=== PATIENT | male | born 1965 | race Caucasian/White ===

== ENCOUNTER 2017-01-04 16:47 | Emergency (ER) | payer SELFPAY ==
--- NOTE | 2017-01-04 17:26 | ED.PDOC ---
History of Present Illness - General Chief Complaint: General Stated Complaint: thumb/hand swelling/redness/pain Time Seen by Provider: 01/04/17 17:17 Source: patient, RN notes reviewed, Vital Signs reviewed Exam Limitations: no limitations - History of Present Illness Initial Comments: Patient is a 51 y/o male who was doing yard work 3 days ago when his thumb started hurting. The pain has increased over the past three days. When he woke up this morning, his entire right hand was swollen with pain going up his arm. The thumb is very swollen and painful. Timing/Duration: getting worse, other - 3 days Severity: moderate, severe Improving Factors: nothing Worsening Factors: movement Associated Symptoms: denies symptoms Allergies/Adverse Reactions: Allergies NO KNOWN ALLERGY Allergy (Unverified 05/08/13 02:10) Home Medications: Ambulatory Orders Sulfa/Trimeth 800/160 (Ds) Tab [Bactrim DS Tab] 1 ea PO BID #14 tab 08/30/14 Clindamycin HCl 300 mg PO TID #21 cap 01/04/17 Review of Systems - Review of Systems Constitutional: States: no symptoms reported EENTM: States: no symptoms reported Respiratory: States: no symptoms reported Cardiology: States: no symptoms reported Gastrointestinal/Abdominal: States: no symptoms reported Genitourinary: States: no symptoms reported Musculoskeletal: States: joint pain, muscle pain, muscle stiffness Skin: States: other - redness, swelling, pustules Neurological: States: no symptoms reported Endocrine: States: no symptoms reported Hematologic/Lymphatic: States: no symptoms reported Past Medical History (General) - Patient Medical History Hx Seizures: No Hx Stroke: No Hx Dementia: No Hx Asthma: No Hx of COPD: No Hx Cardiac Disorders: No Hx Congestive Heart Failure: No Hx Pacemaker: No Hx Hypertension: No Hx Thyroid Disease: No Hx Diabetes: No Hx Gastroesophageal Reflux: No Hx Renal Disease: No Hx Cancer: No Hx of HIV: No Hx Hepatitis C: No Hx MRSA: No MRSA Source:: Wound Surgical History: no surgical history - Vaccination History Hx Tetanus, Diphtheria Vaccination: No Hx Influenza Vaccination: No Hx Pneumococcal Vaccination: No - Social History Hx Tobacco Use: Yes Hx Chewing Tobacco Use: No Hx Alcohol Use: Yes - occasinnally Hx Substance Use: Yes Hx Depression: No Hx Physical Abuse: No Hx Emotional Abuse: No Hx Suspected Abuse: No - Female History Patient : No Family Medical History - Family History Mother Family History: No Known Living Status: Physical Exam - Physical Exam General Appearance: Alert, Obvious distress - Moderate Ears, Nose, Throat: hearing grossly normal, normal ENT inspection Neck: non-tender, supple Respiratory: no respiratory distress Extremity: swelling, other - Right hand: Thumb with obvious abscess 3.4 x 2.8 cm with two pustules atop. Entire right hand is erythematous and hot up to the wrist. Full ROM of the wrist, but unable to bend thumb Neurologic: alert, normal mood/affect, oriented x 3 Skin Exam: other - See extremity exam Progress - Results/Orders Results/Orders: 01/04/17 01/04/17 16:47 17:45 Temperature 98.4 F Pulse Rate [ 108 H 100 H Left Radial] Respiratory 20 20 Rate Blood Pressure 126/87 132/84 [Left Arm] O2 Sat by Pulse 96 96 Oximetry 01/04/17 17:17 Thumb,Right [RAD] Stat 01/04/17 18:20 WOUND CULTURE Stat 01/04/17 18:32 Clindamycin IV 600Mg [Cleocin IV 600mg] 600 mg Premix Bag 1 bag IVPB ONCE Laboratory Results WBC 12.6 K/mm3 (4.8-10.8) H 01/04/17 17:33 RBC 4.81 M/mm3 (4.70-6.10) 01/04/17 17:33 Hgb 13.4 gm/dL (14.0-18.0) L 01/04/17 17:33 Hct 39.6 % (42.0-52.0) L 01/04/17 17:33 MCV 82.4 fl (80.0-94.0) 01/04/17 17:33 MCH 27.8 pg (27.0-31.0) 01/04/17 17:33 MCHC 33.7 g/dL (33.0-37.0) 01/04/17 17:33 RDW 14.1 % (11.5-14.5) 01/04/17 17:33 Plt Count 277 K/mm3 (130-400) 01/04/17 17:33 MPV 7.3 fl (7.40-10.4) L 01/04/17 17:33 Absolute Neuts (auto) 9.80 K/uL (1.8-6.8) H 01/04/17 17:33 Absolute Lymphs (auto) 1.80 K/uL (1.0-3.4) 01/04/17 17:33 Absolute Monos (auto) 0.90 K/uL (0.2-0.8) H 01/04/17 17:33 Absolute Eos (auto) 0.00 K/uL (0.0-0.4) 01/04/17 17:33 Absolute Basos (auto) 0.10 K/uL (0.0-0.1) 01/04/17 17:33 Neutrophils % 77.6 % (42.0-78.0) 01/04/17 17:33 Lymphocytes % 14.2 % (20.0-50.0) L 01/04/17 17:33 Monocytes % 6.8 % (2.0-9.0) 01/04/17 17:33 Eosinophils % 0.4 % (1.0-5.0) L 01/04/17 17:33 Basophils % 1.0 % (0.0-2.0) 01/04/17 17:33 - EKG/XRAY/CT XRAY: hand - and thumb: soft tissue swelling in lateral hand and wrist. Procedures - Incision and Drainage #1 Site: Right dorsal thumb Procedure and Prep: irrigated, wound culture collected, pus drained Blade Size: 11 Procedure Comments: Area cleansed with Hibeclens. Thumb anesthetized with Lidocaine 2%, 5 mL. Approximately 3-4 mL of puss was extracted from abscess. Patient tolerated procedure well. Departure - Departure Clinical Impression: Abscess of thumb, right, Cellulitis of hand, right, Encounter for incision and drainage procedure Time of Disposition: 19:11 Disposition: Discharge to Home or Self Care Condition: Fair Departure Forms: ED Discharge - Pt. Copy, Patient Portal Self Enrollment Instructions: DI for Skin Abscess, Incision and Drainage of a Skin Abscess, DI for Incision and Drainage of a Skin Abscess, Cellulitis, DI for Orbital Cellulitis Diet: resume usual diet Referrals: Angelina Alfaro NP [Nurse Practitioner] - 1-2 Weeks Prescriptions: Clindamycin HCl 300 mg PO TID #21 cap Home Medications: Ambulatory Orders Sulfa/Trimeth 800/160 (Ds) Tab [Bactrim DS Tab] 1 ea PO BID #14 tab 08/30/14 Clindamycin HCl 300 mg PO TID #21 cap 01/04/17 Additional Instructions: Follow up in Ed for any spreading of redness or increased pain. Follow up with Angelina Alfaro N.P in 1-2 days. If not improvement in 3 days, follow up in ED.
[2017-01-04] MEDS ORDERED: LIDOCAINE 2% 50 ML VIAL ONE (17:57)
[2017-01-04] MEDS ORDERED: CHLORHEXIDINE GLUCONATE 4 % 15 ML UD TOP ONE (17:58)
[2017-01-04] MEDS ORDERED: IODOFORM 1/4 INCH 1 EA BTTL TOP ONE (17:59)
--- NOTE | 2017-01-04 18:22 | RAD ---
Procedure: XR HAND 3 OR MORE VIEWS Exam Date: 01/04/2017 Ordering Provider: Kandis Haney Clinical Indication: Abscess/cellulitis Comparison: None Findings: There is no fracture or dislocation. Articular surfaces of the right hand and visualized wrist are normal. There are no lytic or sclerotic lesions. There is no radiopaque foreign body. Soft tissue swelling in the lateral aspect of the hand and wrist. No apparent soft tissue gas. Impression: 1. No acute fracture or dislocation in the right hand. 2. Soft tissue swelling in the lateral aspect of the hand and wrist. No apparent soft tissue gas. Electronically signed by: Willi Fuentes MD 01/04/2017 6:21 PM CDT
[2017-01-04] MEDS ORDERED: CLINDAMYCIN IV 600MG 600 MG in PREMIX BAG 1 BAG IVPB ONE (18:32)
[2017-01-04] MEDS ORDERED: CLINDAMYCIN IV 600MG 50 ML IVPB ONE (18:46)
[2017-01-04] MEDS ORDERED: KETOROLAC TROMETHAMINE INJ 30 MG/ML VIAL IV ONE (18:49)
[2017-01-04] MEDS ORDERED: HYDROcodone 10MG/APAP 325MG 1 EA TAB PO ONE (18:52)
[2017-01-04] MEDS ORDERED: MORPHINE SULFATE INJ 10 MG/ML VIAL ONE (19:07)
[2017-01-04] MEDS ORDERED: MORPHINE SULFATE INJ 10 MG/ML VIAL IV ONE (19:07)
[2017-01-04] MEDS ORDERED: HYDROcodone 5MG/APAP 325MG 1 EA TAB PO ONE (19:16)
[2017-01-04] MEDS ORDERED: HYDROCOD/APAP 10/325 (ER DISP) # 3 tablets PO ONE (19:16)
[2017-01-04] MEDS ORDERED: POVIDONE IODINE 10 % 15 ML UD TOP ONE (19:16)
[2017-01-04] MEDS ORDERED: CLINDAMYCIN HCL CAP (ER DISP) 150 MG CAP PO ONE (19:29)
--- NOTE | 2017-01-04 19:48 | RAD ---
Procedure: XR FINGERS Exam Date: 01/04/2017 Ordering Provider: Kandis Haney Clinical Indication: Abscess/cellulitis Comparison: 01/04/2017 right hand x-ray FINDINGS: No fracture or dislocation of the right thumb. Diffuse soft tissue swelling. No soft tissue gas evident. No radiographic evidence of osteomyelitis in the right thumb. There is no lytic or sclerotic lesion. No radiopaque foreign bodies. IMPRESSION: 1. No acute fracture or dislocation of the right thumb. 2. No soft tissue gas evident. 3. No radiographic evidence of osteomyelitis in the right thumb. Electronically signed by: Willi Fuentes MD 01/04/2017 7:48 PM CDT
[2017-01-04 20:01] VITALS: BP 129/88; TEMP 98.6; O2SAT 100
== END 2017-01-04 19:45 | disposition home or self-care (01) ==
LOC: ER 16:47
DX: L02.511 Cutaneous abscess of right hand (principal); L03.113 Cellulitis of right upper limb
CPT/HCPCS: 36415; 73130; 73140; 85025; 87070; J1885; J2270; J3490